=== PATIENT | female | born 1965 | race Asian ===

== ENCOUNTER → 2024-03-19 11:04 | Outpatient (REF) | payer OTHER, SELFPAY | LOC: WDC 11:04 | PROVIDERS: ATTENDING PHYSICIAN Internal Medicine | DX: Z12.31 Encounter for screening mammogram for malignant neoplasm of breast (principal) | CPT/HCPCS: 77063; 77067 ==

== ENCOUNTER → 2024-04-04 08:40 | Outpatient (REF) | payer OTHER, SELFPAY | LOC: HWRAD 08:40 | PROVIDERS: ATTENDING PHYSICIAN Internal Medicine | DX: Z78.0 Asymptomatic menopausal state (principal) | CPT/HCPCS: 77080 ==

== ENCOUNTER 2025-05-13 20:00 | Emergency (ER) | payer OTHER, SELFPAY ==
[2025-05-13 20:06] VITALS: BP 139/73
--- NOTE | 2025-05-14 00:27 | ED.GENMED ---
History of Present Illness
General
Chief Complaint: Musculo-Skeletal Complaint
Source: patient
Exam Limitations: none
Time Seen by Provider: 05/13/25 23:07
Nursing documentation reviewed up to this point in time: agreed with
History of Present Illness
History of Present Illness:
59-year-old female presenting to the emergency department today with concerns of right-sided ankle discomfort after a fall while playing pickle ball. Has had difficulty with ambulation since but has been able to limp. Denies additional injuries no
blood thinners.
Review of Systems
Review of Systems
Allergies reviewed?: Yes
All Other Systems: ROS reviewed and negative except as documented in HPI and ROS
Phy Exam
Physical Exam
Physical Exam:
GENERAL: Alert , in no apparent distress
EYE: pupils equal and reactive
NECK: Supple, no significant adenopathy.
ENT: o/p clr, mmm.
CARDIAC: Regular rate and rhythm .
LUNGS: Clear breath sounds bilaterally, no acute respiratory distress, no wheezes/rales/rhonchi
ABDOMEN: Soft, without focal tenderness, no r/g, no cvat
NEUROLOGICAL: Alert and oriented, no focal neuro deficits
SKIN: Warm and dry, skin intact.
MUSCULOSKELETAL: Ankle discomfort mainly to the area just anterior to the lateral malleolus mild swelling no pain to the midfoot or forefoot no pain to the posterior aspect of the lateral malleolus no pain to the medial malleolus Achilles intact
knee examination is normal. Well perfused.
PSYCH: Normal and appropriate interaction.
Course
Orders/Labs/Results
Orders:
Orders
05/13/25 20:08
CR Ankle - Right Min 3 Views * Urgent
Comment:
Reason For Exam: injury
Vital Signs
Initial and Last Documented VS:
Initial Vital Signs
Temp Pulse Resp BP Pulse Ox
98.0 F 62 18 139/73 99
05/13/25 20:06 05/13/25 20:06 05/13/25 20:06 05/13/25 20:06 05/13/25 20:06
Last Documented Vital Signs
Temp Pulse Resp BP Pulse Ox
98.0 F 62 18 139/73 99
05/13/25 20:06 05/13/25 20:06 05/13/25 20:06 05/13/25 20:06 05/13/25 20:06
MDM/Problems Addressed
MDM/Problems Addressed:
59-year-old female presenting to the emergency department today with concerns of right ankle discomfort after inversion injury while playing pickle ball earlier in the evening. Difficulty with ambulation since. Here tenderness mainly to the area
anterior to the lateral malleolus no tenderness throughout the remainder of the foot or ankle. X-ray without signs of fracture patient with likely sprain. Patient had a boot that she was walking well and otherwise stable for close outpatient
follow-up as needed. Return precautions given.
*Pulse Oximetry
SaO2: 99
Oxygen Mode of Delivery: Room air
Patient hypoxic: no (99)
*Critical Care Note
Total Time (30-74mins, 75-104mins- exclusive of procedures): Not Applicable
ED Attending Note
-
Portions of this chart may have been created with voice recognition software.� Occasional wrong word or��sound alike� substitutions may have occurred due to the inherent limitations of voice recognition software.
Discharge Plan
Departure
Patient Disposition: Home (Routine Discharge)
Date of Disposition: 05/14/25
Time of Disposition: 00:28
Patient with high blood pressure during this ER visit?: No
Condition: Good
Covid-19: Not Applicable
Discharge Problem:
Sprain of ankle, right
Instructions: Sprain (DC)
Referrals:
Bijan Estes MD [Active, Orthopedics] - Follow up in 5-7 days
Adelaida Lucas MD [Family Provider, Internal Medicine]
Activity Restrictions/Additional Instructions:
You came to the emergency department today with concerns of ankle discomfort. Here your x-ray did not show a broken bone. You likely have a sprain. Please follow-up closely with orthopedics and in the meantime please rest ice compress and
elevate. Return for any worsening, new or concerning symptoms.
Interventions
Interventions:
*Risk Screen - Suicide Last Done: 05/13/25 23:19
*General Assessment Last Done: 05/13/25 20:06
*Neglect/Abuse Screening Last Done: 05/13/25 23:19
*ED- Fall Risk Assessment Last Done: 05/13/25 23:19
*ED COVID-19 Vaccine History Last Done: 05/13/25 23:19
*ED Influenza Vaccine History Last Done: 05/13/25 23:19
ED-Musculoskeletal Assessment Last Done: 05/13/25 23:19
Discharge Date and Time
Print Language: ARGENTINE
== END 2025-05-14 00:36 | disposition home or self-care (01) ==
LOC: EMR 20:00
PROVIDERS: EMERGENCY PHYSICIAN Emergency Medicine; FAMILY PHYSICIAN Internal Medicine
DX: S93.401A Sprain of unspecified ligament of right ankle, initial encounter (principal); X50.1XXA Overexertion from prolonged static or awkward postures, initial encounter; Y93.69 Activity, other involving other sports and athletics played as a team or group; Y92.318 Other athletic court as the place of occurrence of the external cause
CPT/HCPCS: 99283; 73610